=== PATIENT | male | born 1990 | race Caucasian/White ===

== ENCOUNTER 2019-04-08 18:21 | Emergency (ER) | payer MEDICAID, SELFPAY ==
[~2019-04-08] VITALS: Ht 188 cm; Wt 91.7 kg
[2019-04-08 18:22] VITALS: BP 134/81
[2019-04-08] MEDS ORDERED: IBUPROFEN 800 MG TAB PO ONE (20:00)
--- NOTE | 2019-04-09 06:14 | REP ---
PA and lateral chest: There are no comparisons. The lung titus are clear. The cardiac size is normal. The negra, mediastinum, and skeletal structures are unremarkable. Impression: Negative PA and lateral chest. Electronically Signed by Bud Crowe MD 04/09/2019 06:06 A
--- NOTE | 2019-04-09 09:09 | ECGEPIP ---
[facility] - ED Test Date: 2019-04-08 Pat Name: BRANDY DSOUZA Department: Room: - Gender: Male [employer]: : 1990 Requested By: RASHMI Ramirez PA-C Order Number: [id number] Reading MD: Fawn Shannon Measurements Intervals [place] Rate: 83 P: 47 RI: 157 QRS: 92 QRSD: 117 T: 29 QT: 341 QTc: 402 Interpretive Statements SINUS RHYTHM BORDERLINE RIGHT AXIS DEVIATION MODERATE INTRAVENTRICULAR CONDUCTION DELAY No prior Electronically Signed on 04-09-2019 9:09:04 EDT by Fawn Shannon
== END 2019-04-08 21:21 | disposition left against medical advice (07) ==
LOC: M ED 18:21
DX: R07.89 Other chest pain (principal); M54.5 Low back pain; F43.9 Reaction to severe stress, unspecified; G47.00 Insomnia, unspecified; F41.9 Anxiety disorder, unspecified; R00.0 Tachycardia, unspecified; G40.909 Epilepsy, unspecified, not intractable, without status epilepticus; J45.909 Unspecified asthma, uncomplicated; Z72.0 Tobacco use